=== PATIENT | male | born 1940 | race African-American/Black ===

== ENCOUNTER 2025-10-11 15:04 | Inpatient (IN) | payer MEDICARE, MEDICAID ==
[~2025-10-11] VITALS: Ht 167.6 cm; Wt 68.5 kg
[2025-10-11] VITALS (7 sets, daily range): BP systolic 163–187; BP diastolic 53–76; PULSE 60–70; RESP 17; TEMP 36.3918–36.72516; O2SAT 100
[2025-10-11 16:04] LABS: MEAN PLATELET VOLUME 9.4 fl (7.4-10.4); PLATELET 282 x1000/uL (130-400); RED BLOOD CELL COUNT 3.28 mill/uL (4.7-6.1); RED CELL DISTRIBUTION WIDTH 20.5 % (11.6-14.6)
[2025-10-11 16:19] LABS: CREATININE 1.0 mg/dL (0.6-1.3)
[2025-10-11 16:20] LABS: UREA NITROGEN BLOOD 8 mg/dL (9-23)
[2025-10-11 16:21] LABS: ASPARTATE AMINOTRANSFERASE 78 IU/L (<34)
[2025-10-11 16:22] LABS: BILIRUBIN DIRECT 0.1 mg/dL (<=3.0); BILIRUBIN TOTAL 0.4 mg/dL (0.1-1.0); PROTEIN TOTAL 7.5 g/dL (6.0-8.3); TROPONIN I HIGH SENSITIVITY 15 ng/L (3.0-53)
[2025-10-11 16:25] LABS: INR 1.1
[2025-10-11 16:49] LABS: HEMATOCRIT. 19.9 % (42.0-52.0); HEMOGLOBIN. 5.4 g/dL (14.0-18.0)
[2025-10-11 18:22] LABS: EOSINOPHILS % MANUAL 1.0 % (0.0-5.0); LYMPHOCYTES % MANUAL 26.0 % (20.0-50.0); MONOCYTES % MANUAL 6.0 % (2.0-8.0); NEUTROPHILS % MANUAL 67.0 % (45.0-75.0); PLATELET ESTIMATE NORMAL
[2025-10-11] MEDS ORDERED: TRAM100C3 PO (22:15)
[2025-10-11] MEDS ORDERED: DOCUSATE SODIUM 100MG CAPSULE PO PRN (23:00)
[2025-10-11] MEDS ORDERED: ONDANSETRON HCL 4MG/2ML INJ IV PRN (23:00)
[2025-10-12] VITALS (9 sets, daily range): BP systolic 144–175; BP diastolic 65–81; PULSE 57–71; RESP 17–18; TEMP 36.1–36.78072; O2SAT 97–100
[2025-10-12] MEDS: AMLODIPINE 5MG TABLET PO SCH (00:13)
[2025-10-12 00:18] LABS: VITAMIN B12 SERUM 394 pg/mL (211-911)
[2025-10-12 06:01] LABS: HEMATOCRIT. 24.1 % (42.0-52.0); MEAN PLATELET VOLUME 9.4 fl (7.4-10.4); PLATELET 248 x1000/uL (130-400); RED BLOOD CELL COUNT 3.88 mill/uL (4.7-6.1); RED CELL DISTRIBUTION WIDTH 23.3 % (11.6-14.6)
[2025-10-12 06:21] LABS: T4 FREE 1.32 ng/dL (0.89-1.76)
[2025-10-12 06:25] LABS: CREATININE 0.9 mg/dL (0.6-1.3)
[2025-10-12 06:27] LABS: LDL CHOLESTEROL 46 mg/dL (5-100); TRIGLYCERIDE 79 mg/dL (0-150); UREA NITROGEN BLOOD 9 mg/dL (9-23)
[2025-10-12 06:35] LABS: HEMOGLOBIN. 6.9 g/dL (14.0-18.0)
[2025-10-12] MEDS: FERROUS SULFATE 325MG TABLET PO SCH (08:06)
[2025-10-12] MEDS: PANTOPRAZOLE 40MG DR TABLET PO SCH (08:07)
[2025-10-12] MEDS: MULTIVITAMINS,THER W-MINERALS TABLET PO SCH (08:07)
[2025-10-12 10:08] LABS: CLARITY URINE CLEAR (CLEAR); COLOR URINE YELLOW (YELLOW); GLUCOSE URINE NEGATIVE (NEGATIVE); KETONES URINE NEGATIVE (NEGATIVE); LEUKOCYTE ESTERASE URINE NEGATIVE (NEGATIVE); NITRITE URINE NEGATIVE (NEGATIVE); OCCULT BLOOD URINE NEGATIVE (NEGATIVE); PH URINE 6.0 (4.5-8.0); PROTEIN URINE NEGATIVE (NEGATIVE); SPECIFIC GRAVITY URINE 1.015 (1.005-1.030); UROBILINOGEN URINE 0.2 E.U./dL (0.2-1.0)
[2025-10-12 13:23] LABS: HEMATOCRIT. 27.6 % (42.0-52.0); HEMOGLOBIN. 8.2 g/dL (14.0-18.0); RED BLOOD CELL COUNT 4.24 mill/uL (4.7-6.1); RED CELL DISTRIBUTION WIDTH 25.6 % (11.6-14.6)
[2025-10-12 14:14] LABS: PLATELET 233 x1000/uL (130-400)
[2025-10-12 14:19] LABS: BASOPHILS % MANUAL 1.0 % (0.0-2.0); EOSINOPHILS % MANUAL 6.0 % (0.0-5.0); LYMPHOCYTES % MANUAL 10.0 % (20.0-50.0); MONOCYTES % MANUAL 6.0 % (2.0-8.0); NEUTROPHILS % MANUAL 77.0 % (45.0-75.0); PLATELET ESTIMATE NORMAL
[2025-10-12 19:09] LABS: EOSINOPHILS % MANUAL 2.0 % (0.0-5.0); LYMPHOCYTES % MANUAL 30.0 % (20.0-50.0); MONOCYTES % MANUAL 11.0 % (2.0-8.0); NEUTROPHILS % MANUAL 57.0 % (45.0-75.0); PLATELET ESTIMATE NORMAL
[2025-10-12] MEDS: PANTOPRAZOLE SODIUM 40 MG/VIAL IV SCH (21:12)
[2025-10-13] VITALS: BP 158/69; PULSE 70; RESP 17; TEMP 36.1; O2SAT 96
[2025-10-13 04:00] VITALS: BP 160/79; PULSE 67; RESP 17; TEMP 36.4; O2SAT 98
[2025-10-13 07:18] LABS: HEMATOCRIT. 27.4 % (42.0-52.0); HEMOGLOBIN. 8.1 g/dL (14.0-18.0); RED BLOOD CELL COUNT 4.24 mill/uL (4.7-6.1); RED CELL DISTRIBUTION WIDTH 25.5 % (11.6-14.6)
[2025-10-13 07:50] LABS: CREATININE 0.8 mg/dL (0.6-1.3); UREA NITROGEN BLOOD 6 mg/dL (9-23)
[2025-10-13 07:52] LABS: ASPARTATE AMINOTRANSFERASE 21 IU/L (<34); BILIRUBIN TOTAL 0.6 mg/dL (0.1-1.0); PROTEIN TOTAL 7.3 g/dL (6.0-8.3)
[2025-10-13 08:00] VITALS: BP 153/78; PULSE 73; RESP 18; TEMP 36.6; O2SAT 100
[2025-10-13] MEDS: ACETAMINOPHEN 325MG TABLET PO PRN (11:58)
[2025-10-13 12:00] VITALS: BP 179/77; PULSE 70; RESP 18; TEMP 36.4; O2SAT 99
[2025-10-13] MEDS: CLONIDINE 0.1MG TABLET PO PRN (13:17)
[2025-10-13] MEDS: DEXT 5%/0.45% NACL 1000ML 1,000 ML IV SCH (15:43)
[2025-10-13 16:00] VITALS: BP 148/75; PULSE 60; RESP 18; TEMP 36.6; O2SAT 100
[2025-10-13 20:00] VITALS: BP 129/57; PULSE 68; RESP 16; TEMP 36.7; O2SAT 97
[2025-10-14] VITALS: BP 109/61; PULSE 65; RESP 16; TEMP 36.6; O2SAT 91
[2025-10-14 04:00] VITALS: BP 142/58; PULSE 62; RESP 16; TEMP 37.1; O2SAT 96
[2025-10-14 07:22] LABS: INR 1.1
[2025-10-14 07:40] LABS: CREATININE 0.8 mg/dL (0.6-1.3); UREA NITROGEN BLOOD 9 mg/dL (9-23)
[2025-10-14 07:41] LABS: HEMATOCRIT. 27.7 % (42.0-52.0); HEMOGLOBIN. 8.3 g/dL (14.0-18.0); RED BLOOD CELL COUNT 4.31 mill/uL (4.7-6.1); RED CELL DISTRIBUTION WIDTH 26.1 % (11.6-14.6)
[2025-10-14 07:42] LABS: ASPARTATE AMINOTRANSFERASE 16 IU/L (<34); BILIRUBIN TOTAL 0.3 mg/dL (0.1-1.0); PROTEIN TOTAL 6.9 g/dL (6.0-8.3)
[2025-10-14 08:00] VITALS: BP 168/75; PULSE 60; RESP 20; TEMP 36.4; O2SAT 100
[2025-10-14 08:59] LABS: BASOPHILS % MANUAL 1.0 % (0.0-2.0); EOSINOPHILS % MANUAL 8.0 % (0.0-5.0); LYMPHOCYTES % MANUAL 25.0 % (20.0-50.0); MONOCYTES % MANUAL 4.0 % (2.0-8.0); NEUTROPHILS % MANUAL 62.0 % (45.0-75.0); PLATELET ESTIMATE NORMAL
[2025-10-14 09:01] LABS: PLATELET 213 x1000/uL (130-400)
[2025-10-14 12:00] VITALS: BP 158/80; PULSE 64; RESP 20; TEMP 36.4; O2SAT 98
[2025-10-14] MEDS ORDERED: PROPOFOL 200MG/20ML VIAL IV ONE (12:41)
[2025-10-14 14:41] LABS: EOSINOPHILS % MANUAL 2.0 % (0.0-5.0); LYMPHOCYTES % MANUAL 25.0 % (20.0-50.0); MONOCYTES % MANUAL 2.0 % (2.0-8.0); NEUTROPHILS % MANUAL 71.0 % (45.0-75.0); NUCLEATED RED BLOOD CELLS 1 /100 WBC; PLATELET ESTIMATE NORMAL
[2025-10-14 14:43] LABS: MEAN PLATELET VOLUME 10.2 fl (7.4-10.4); PLATELET 220 x1000/uL (130-400)
[2025-10-14 16:00] VITALS: BP 153/59; PULSE 70; RESP 18; TEMP 36.3; O2SAT 100
[2025-10-14 20:00] VITALS: BP 151/54; PULSE 69; RESP 18; TEMP 36.2; O2SAT 100
[2025-10-15] VITALS: BP 161/81; PULSE 64; RESP 18; TEMP 36.4; O2SAT 99
[2025-10-15 04:00] VITALS: BP 141/70; PULSE 55; RESP 18; TEMP 36.2; O2SAT 99
[2025-10-15 07:29] LABS: CREATININE 0.8 mg/dL (0.6-1.3); UREA NITROGEN BLOOD 7 mg/dL (9-23)
[2025-10-15 08:00] VITALS: BP 157/67; PULSE 68; RESP 16; TEMP 36.6; O2SAT 100
[2025-10-15 08:50] LABS: HEMATOCRIT. 28.5 % (42.0-52.0); HEMOGLOBIN. 8.3 g/dL (14.0-18.0); RED BLOOD CELL COUNT 4.35 mill/uL (4.7-6.1); RED CELL DISTRIBUTION WIDTH 26.0 % (11.6-14.6)
[2025-10-15 12:00] VITALS: BP 149/99; PULSE 60; RESP 18; TEMP 36.8; O2SAT 100
[2025-10-15 16:00] VITALS: BP 150/59; PULSE 66; RESP 20; TEMP 36.6; O2SAT 100
[2025-10-15 17:57] VITALS: BP 150/59; PULSE 66; RESP 20; TEMP 97.8
[2025-10-15] MEDS ORDERED: PROT40 PO (20:06)
[2025-10-15] MEDS ORDERED: AMLO5TAB88 PO (20:06)
[2025-10-15] MEDS ORDERED: FERR-63 PO (20:06)
[2025-10-16 07:52] LABS: EOSINOPHILS % MANUAL 7.0 % (0.0-5.0); LYMPHOCYTES % MANUAL 20.0 % (20.0-50.0); MONOCYTES % MANUAL 1.0 % (2.0-8.0); NEUTROPHILS % MANUAL 72.0 % (45.0-75.0)
[2025-10-16 07:53] LABS: PLATELET ESTIMATE NORMAL
[2025-10-16 07:55] LABS: MEAN PLATELET VOLUME 10.3 fl (7.4-10.4); PLATELET 197 x1000/uL (130-400)
== END 2025-10-15 21:10 | disposition home or self-care (01) | DRG 392 ==
LOC: ER 15:04 → EDBEDREQ 15:35 → EDBEDREQTM 17:59 → EDBEDREQSVC 17:59 → EDBEDREQ 17:59 → ENRESERV 19:22 → 5WST 20:17
PROVIDERS: ADMIT Internal Medicine; ATTEND Internal Medicine
PROC: 30233N1 Transfusion of Nonautologous Red Blood Cells into Peripheral Vein, Percutaneous Approach (ICD-10-PCS; principal; 2025-10-11)
PROC: 0DB78ZX Excision of Stomach, Pylorus, Via Natural or Artificial Opening Endoscopic, Diagnostic (ICD-10-PCS; 2025-10-14)
DX: K29.70 Gastritis, unspecified, without bleeding (principal); D50.9 Iron deficiency anemia, unspecified; F03.90 Unspecified dementia, unspecified severity, without behavioral disturbance, psychotic disturbance, mood disturbance, and anxiety; I10 Essential (primary) hypertension; R73.03 Prediabetes; N28.1 Cyst of kidney, acquired; K57.30 Diverticulosis of large intestine without perforation or abscess without bleeding; Z92.3 Personal history of irradiation; Z85.46 Personal history of malignant neoplasm of prostate; Z79.899 Other long term (current) drug therapy
CPT/HCPCS: 36415; 74176; 80048; 80053; 80061; 80076; 81003; 82607; 83540; 83550; 83735; 84439; 84443; 84484; 85014; 85018; 85025; 85027; 86850; 86900; 86920; 88305; 88312; 88313; 97162; 99285; A4606; J2470; J2704; P9016